=== PATIENT | female | born 1975 | race Caucasian/White ===

== ENCOUNTER 2018-03-23 08:00 | Outpatient (CLI) | payer BC ==
--- NOTE | 2018-04-12 11:02 | MMO ---
BILATERAL SCREENING MAMMOGRAM: Date: 03/23/18 HISTORY: 42-year-old female. Routine screening mammography. COMPARISON: 10/13/11. TECHNIQUE: CC and MLO views of both breasts are submitted for interpretation. This patient's mammogram was reviewed with the assistance of computer-aided detection. FINDINGS: The breasts are composed of scattered fibroglandular tissue. Bilaterally, no suspicious dominant mass , architectural distortion, or suspicious calcifications. Stable intramammary lymph node in the left breast. IMPRESSION: BIRADS 2: Benign Finding(s) RECOMMENDATION: Annual mammogram. POS: [facility]
== END 2018-03-23 08:01 | disposition home or self-care (01) ==
LOC: SCSMAMMO 08:00
PROVIDERS: ATTEND Internal Medicine
DX: Z12.31 Encounter for screening mammogram for malignant neoplasm of breast (principal)
CPT/HCPCS: 77067

== ENCOUNTER 2020-06-26 07:33 | Outpatient (CLI) | payer BC | END 2020-06-26 07:34 | disposition home or self-care (01) | LOC: TBSIIMAG 07:33 | PROVIDERS: ATTEND Internal Medicine | DX: G43.001 Migraine without aura, not intractable, with status migrainosus (principal) | CPT/HCPCS: 70551 ==

== ENCOUNTER 2020-06-26 11:01 | Observation (INO) | payer BC ==
[2020-06-26] MEDS ORDERED: methylPREDNISolone Sod Succ/PF 125 MG/2 ML VIAL ONE (12:13)
[2020-06-26] MEDS ORDERED: diphenhydrAMINE 50 MG/ML VIAL ONE (12:13)
[2020-06-26] MEDS ORDERED: Metoclopramide HCl 10 MG/2 ML VIAL ONE (12:13)
[2020-06-26] MEDS ORDERED: Ketorolac Tromethamine 30 MG/ML VIAL ONE (12:13)
[2020-06-26 12:22] LABS: #Basophils 0.1 thou/uL (0.0-0.2); #Eosinphils 0.2 thou/uL (0.0-0.7); #Lymphocytes 2.4 thou/uL (1.20-3.40); #Monocytes 0.6 thou/uL (0.11-0.59); #Neutrophils 4.6 thou/uL (1.40-6.50); %Basophils 0.8 % (0.0-1.0); %Eosinophils 3.2 % (0.0-10.0); %Lymphocytes 30.5 % (21.0-51.0); %Monocytes 7.8 % (0.0-10.0); %Neutrophils 57.8 % (42.0-75.0); Hemoglobin 14.4 g/dL (12.0-16.0); Mean Corpuscular HGB CONC 33.8 g/dL (32.0-36.0); Mean Corpuscular Hemoglobin 30.8 pg (27.0-31.0); Mean Platelet Volume 7.1 fL (7.4-10.4); Platelet Count 221 thou/uL (130-400); RBC Distribution Width 12.3 % (11.5-14.5); Red Blood Cell (RBC) Count 4.66 mill/uL (4.20-5.40); White Blood Cell (WBC) Count 7.9 thou/uL (4.8-10.8)
[2020-06-26 12:33] LABS: Bacteria/HPF None Seen HPF (None Seen); Bilirubin Negative (Negative); Blood, Urine Trace (Negative); Clarity Clear (Clear); Glucose, Urine (Dipstick) Normal (Negative); Ketone, Urine Negative (Negative); Leukocyte Negative Leu/uL (Negative); Nitrite Negative (Negative); Protein, Urine (Dipstick) Negative (Neg-Trace); RBC/HPF 0-3 HPF (0-3); Specific Gravity, Urine 1.008 (1.002-1.036); Squamous Epithelial 0-3 HPF (0-3); Urobilinogen Normal mg/dL (Less than 2); WBC/HPF None Seen HPF (0-3)
[2020-06-26 12:43] LABS: ALT (SGPT) 21 U/L (8-55); AST (SGOT) 29 U/L (5-34); Albumin 3.8 g/dL (3.5-5.0); Alkaline Phosphatase 85 U/L (40-110); Anion Gap 14 mmol/L (10-20); BUN (Urea Nitrogen) 11 mg/dL (7.0-18.7); Bilirubin, Total 0.3 mg/dL (0.2-1.2); Calc. Creatinine Clearance 0 mL/min (70-130); Calcium 8.5 mg/dL (7.8-10.44); Carbon Dioxide 21 mmol/L (22-29); Chloride 107 mmol/L (98-107); Globulin 3.1 g/dL (2.4-3.5); Glucose 99 mg/dL (70-105); Potassium 4.2 mmol/L (3.5-5.1); Protein, Total 6.9 g/dL (6.0-8.3); Sodium 138 mmol/L (136-145)
[2020-06-26] MEDS ORDERED: Calcium Carbonate 500 MG ChewTAB PO PRN (16:18)
[2020-06-26] MEDS ORDERED: Sodium Chloride 0.65% Nasal 44 ML BOT EA NARE PRN (16:18)
[2020-06-26] MEDS ORDERED: Loratadine 10 MG TAB PO PRN (16:18)
[2020-06-26] MEDS ORDERED: Ondansetron ODT 4 MG TAB PO PRN (16:18)
[2020-06-26] MEDS ORDERED: Bisacodyl 10 MG SUPP PR PRN (16:18)
[2020-06-26] MEDS ORDERED: Senokot S 8.6-50 MG TAB PO PRN (16:18)
[2020-06-26] MEDS ORDERED: Ondansetron PF 4 MG/2 ML Vial IVP PRN (16:18)
[2020-06-26] MEDS ORDERED: hydrALAZINE 20 MG/ML VIAL SLOW IVP PRN (16:18)
[2020-06-26] MEDS ORDERED: Loperamide HCl 2 MG CAP PO PRN (16:18)
[2020-06-26] MEDS ORDERED: Zolpidem Tartrate 5 MG TAB PO PRN (16:18)
[2020-06-26] MEDS ORDERED: HYDROcodone/Acetaminophen 5/325 mg Tablet PO PRN (16:18)
[2020-06-26] MEDS ORDERED: GUAIFENESIN SF SOLN 200 MG/10 ML UDCUP PO PRN (16:18)
[2020-06-26] MEDS ORDERED: Atorvastatin Calcium 40 MG TAB PO SCH (21:00)
[2020-06-26] MEDS ORDERED: rOPINIRole HCl 0.5 MG TAB PO SCH (23:15)
[2020-06-26] MEDS: Acetaminophen 500 MG TAB PO PRN (23:17)
[2020-06-26 23:33] VITALS: BMI 50.1
[2020-06-26 23:41] LABS: SARS-CoV-2 PCR by NAA Not Detected (NotDetected)
[2020-06-27 05:16] LABS: Cardiac Risk 6.2 (Less than 4.5)
[2020-06-27] MEDS ORDERED: Levothyroxine Sodium 100 MCG TAB PO SCH (06:00)
[2020-06-27] MEDS: Acetaminophen 500 MG TAB PO PRN ×2 (06:25→14:58)
[2020-06-27] MEDS ORDERED: Aspirin 81 mg Enteric Coated Tablet PO SCH (09:00)
[2020-06-27] MEDS ORDERED: Propranolol 40 MG TAB PO SCH (09:00)
[2020-06-27 16:53] VITALS: BP 136/72; TEMP 98.7
[2020-06-27] MEDS ORDERED: rOPINIRole HCl 0.5 MG TAB PO SCH (21:00)
== END 2020-06-27 18:11 | disposition home or self-care (01) ==
LOC: ERS 11:01 → ERHOLD 15:18 → 2SW 20:09
PROVIDERS: ADMIT Internal Medicine; ATTEND Internal Medicine
DX: G43.909 Migraine, unspecified, not intractable, without status migrainosus (principal); R90.89 Other abnormal findings on diagnostic imaging of central nervous system; E03.9 Hypothyroidism, unspecified; G25.81 Restless legs syndrome; E66.01 Morbid (severe) obesity due to excess calories; Z68.43 Body mass index [BMI] 50.0-59.9, adult; Z79.899 Other long term (current) drug therapy; Z88.2 Allergy status to sulfonamides; Z20.822 Contact with and (suspected) exposure to COVID-19; G43.001 Migraine without aura, not intractable, with status migrainosus
CPT/HCPCS: 36415; 70551; 80053; 80061; 81003; 81015; 85025; 85652; 86140; 87635; 93306; 96365; 96375; G0378; J1200; J1885; J2765; J2930; U0003; U0005

== ENCOUNTER 2025-01-03 07:56 | Outpatient (CLI) | payer BC | END 2025-01-03 07:57 | disposition home or self-care (01) | LOC: BICMAMMO 07:56 | PROVIDERS: ATTEND Internal Medicine | DX: Z12.31 Encounter for screening mammogram for malignant neoplasm of breast (principal); Z80.3 Family history of malignant neoplasm of breast | CPT/HCPCS: 77063; 77067 ==